=== PATIENT | male | born 1990 | race Hispanic/Latino ===

== ENCOUNTER 2018-07-28 20:26 | Emergency (ER) | payer OTHER ==
[~2018-07-28] VITALS: Ht 165.1 cm; Wt 78.5 kg
[2018-07-28] MEDS ORDERED: HYDROCODONE/APAP 5MG-325MG TAB PO ONE (20:45)
[2018-07-28] MEDS ORDERED: KETOROLAC TROMETHAMINE 60 MG/2 ML VIAL IM ONE (20:45)
--- NOTE | 2018-07-28 21:30 | Diagnostic Imaging Report ---
CT Abdomen and Pelvis without contrast INDICATION: Left-sided flank pain, abdominal pain TECHNIQUE: Thin collimation axial images obtained from the diaphragm to the level of the pubic symphysis without nonionic intravenous contrast. Dose reduction techniques used: Automated exposure control, adjustment of the mAs and/or kVp according to patient size, standardized low-dose protocol, and/or iterative reconstruction technique. RADIATION DOSE: Total DLP: 586.4 mGy*cm Estimated effective dose: (DLP x 0.015 x size factor) mSv CTDIvol has been reviewed. It is below the limits set by the Radiation Protocol Committee (RPC). COMPARISON: None. ABDOMEN FINDINGS: Lung Bases: Clear. The visualized portion of the mediastinum is normal. Liver: Normal in attenuation without mass. Gallbladder: Present and appears normal. No ductal dilatation. Pancreas: Normal attenuation without mass. Spleen: Normal size without mass. Adrenal Glands: No evidence for mass. Kidneys: Right: Mildly edematous. No intrarenal calculus or perinephric inflammation. No cortical mass or hydronephrosis Left: No renal calculus. No cortical mass or hydronephrosis Lymph Nodes: No enlarged abdominal or retroperitoneal lymph nodes. Aorta: Normal in diameter. PELVIS FINDINGS: Bowel: Stomach: Normal in caliber with normal wall thickness. Small Bowel: Normal in caliber with normal wall thickness. Large Bowel: Normal in caliber with normal wall thickness. Appendix: Normal. Bladder: Normal. Ureters: The right ureter is mildly distended to the level of the right iliac artery. No evidence of calculus or periureteric inflammation. Distal to the right iliac artery, the ureter is collapsed. The left ureter is normal in diameter throughout its course without calculus. Prostate gland/seminal vesicles: Unremarkable. Peritoneum/retroperitoneum: No free fluid or fluid collection. Bones: Subcentimeter bone island in the posterior left acetabulum. Soft tissues: Unremarkable. IMPRESSION: 1. Mildly edematous right kidney and mild distention of the proximal and mid right ureter without evidence of nephrolithiasis or obstructive uropathy. Please correlate for signs/symptoms of UTI. 2. No evidence of renal calculus. No abnormalities of the left kidney or ureter to explain flank pain. 3. No evidence for bowel obstruction or inflammation. Normal appendix. Signed by: Dr. Yumiko Fuchs MD on 07/28/2018 9:27 PM
[2018-07-28] MEDS ORDERED: SODIUM CHLORIDE 0.9% 1000ML 1,000 ML IV SCH (22:15)
[2018-07-28] MEDS ORDERED: CEFTRIAXONE SOD 1 GM VIAL IV ONE (22:15)
--- NOTE | 2018-07-28 23:01 | NUR ---
[facility] CALLED FOR TRANSPORT - ETA 30MIN
== END 2018-07-29 | disposition other institution (70) ==
LOC: FSED 20:26
DX: R10.31 Right lower quadrant pain (principal); N50.811 Right testicular pain; N23 Unspecified renal colic; M54.5 Low back pain; R35.0 Frequency of micturition; R31.9 Hematuria, unspecified; N13.30 Unspecified hydronephrosis; N28.9 Disorder of kidney and ureter, unspecified
CPT/HCPCS: 74176; 80053; 81003; 85025; 87086; 99284